=== PATIENT | male | born 1990 | race Caucasian/White ===

== ENCOUNTER 2018-12-25 14:48 | Outpatient (CLI) | payer OTHER ==
--- NOTE | 2018-12-25 15:57 | RAD ---
2 VIEW CHEST: Date: 12/25/18 No prior comparison. INDICATION: Shortness of breath. FINDINGS: There is no lobar consolidation, effusion, or discrete pneumothorax. Cardiac silhouette is normal in size. The osseous structures are intact. IMPRESSION: No focal consolidation. POS: C
--- NOTE | 2018-12-28 08:27 | PFT ---
PATIENT HISTORY: HEIGHT: 70 IN WEIGHT: 185 SMOKER: NO HOW LON YRS PACKS PER DAY: .5 PRODUCTIVE COUGH: LUNG DISEASE: PHYSICIAN INTERPRETATION PFT data: 12/25/18 The FEV1 is disproportionally decreased to FVC. There is improvement in [id number] Bronchodilatation. Total lung capacity is and Residual Volume are normal. DLCO is normal. IMPRESSION: Mild obstructive pulmonary impairment with reversibility. Gas exchange is normal. Check Pilot: BRITTANI Lap Polisher: BRITTANI REDDY
== END 2018-12-25 14:49 | disposition home or self-care (01) ==
LOC: CP 14:48
PROVIDERS: ATTEND Orthopaedic Surgery
DX: R06.02 Shortness of breath (principal)
CPT/HCPCS: 71046; 94060; 94727; 94729